=== PATIENT | male | born 1960 | race Caucasian/White ===

== ENCOUNTER 2017-03-30 09:12 | Outpatient (CLI) | payer MEDICARE, OTHER | END 2017-03-30 09:13 | disposition home or self-care (01) | LOC: SC 09:12 | PROVIDERS: ATTEND Nurse Practitioner Family | DX: G47.33 Obstructive sleep apnea (adult) (pediatric) (principal) | CPT/HCPCS: 99214; G0463; 99212 ==

== ENCOUNTER 2017-06-01 10:15 | Outpatient (CLI) | payer MEDICARE, OTHER | END 2017-06-01 10:16 | disposition home or self-care (01) | LOC: SC 10:15 | PROVIDERS: ATTEND Nurse Practitioner Family | DX: G47.33 Obstructive sleep apnea (adult) (pediatric) (principal) | CPT/HCPCS: 99213; G0463; 99212 ==

== ENCOUNTER 2018-06-27 10:48 | Outpatient (CLI) | payer MEDICARE, OTHER | END 2018-06-27 10:49 | disposition home or self-care (01) | LOC: SC 10:48 | PROVIDERS: ATTEND Nurse Practitioner Family | DX: G47.33 Obstructive sleep apnea (adult) (pediatric) (principal) | CPT/HCPCS: 99214; G0463; 99212 ==

== ENCOUNTER 2018-11-19 11:21 | Outpatient (CLI) | payer MEDICARE, OTHER | END 2018-11-19 11:22 | disposition home or self-care (01) | LOC: SC 11:21 | PROVIDERS: ATTEND Nurse Practitioner Family | DX: G47.33 Obstructive sleep apnea (adult) (pediatric) (principal) | CPT/HCPCS: 99213; G0463; 99212 ==

== ENCOUNTER 2019-01-24 09:55 | Outpatient (CLI) | payer MEDICARE, OTHER | END 2019-01-24 09:56 | disposition home or self-care (01) | LOC: SC 09:55 | PROVIDERS: ATTEND Nurse Practitioner Family | DX: G47.33 Obstructive sleep apnea (adult) (pediatric) (principal) | CPT/HCPCS: 99214; G0463; 99212 ==

== ENCOUNTER 2019-04-01 09:56 | Outpatient (CLI) | payer MEDICARE, OTHER ==
--- NOTE | 2019-04-01 11:01 | CONSULTATION NOTE ---
Information from patient questionnaire entered by Adilia Salvador. I have reviewed and concur with the information entered by Adilia Salvador. This document represents the service I personally performed and the decisions made by me, Jonathan Jennings MD, [facility]. - History of Present Illness HPI: LI ARMENDARIZ was diagnosed to have moderate, AHI 28.1, obstructive sleep apnea- hypopnea syndrome and returned today for BIPAP therapy three month follow-up. He continues to use the device every night and all night. His usage is excessive but it is unclear whether he actually sleeps that much. He is very comfortable with the treatment. He wears a full face mask. During the day he is not sleepy Equipment obtained from: [facility] - Compliance Data Reviewed with Patient Average duration of nightly device use: 11 hours Compliance rate % (4+hrs/night over past 30 nights): 100 Current pressure setting (cmH2O): 20/14 Humidity settin Heated hose settin Average residual AHI: 8.6 Central apnea: 5.1 - Subjective Initial [place] Sleepiness Scale score: 8 Current [place] Sleepiness Scale score: 3 - Review of Systems Review of systems same as previous: Yes - Impression 1. Obstructive Sleep Apnea-Hypopnea Syndrome, moderate, with good treatment compliance and fair apnea control, but has elevated residual AHI. On BIPAP therapy, there is improved sleep quality and continues to feel more rested overall. Most of the residual events are central apneas. His mask fits very well. Therefore, I will lower the pressure setting a little. - Plan Plan: Change BiPAP to 18/12 cm H2O. Return for follow-up in one year. I spent 100% of this 15 minute visit face to face with the patient with greater than 50% of this was spent time counseling the patient and coordination of care.
== END 2019-04-01 09:57 | disposition home or self-care (01) ==
LOC: SC 09:56
PROVIDERS: ATTEND Internal Medicine Pulmonary Disease
DX: G47.33 Obstructive sleep apnea (adult) (pediatric) (principal)
CPT/HCPCS: 99213; G0463; 99212

== ENCOUNTER 2021-02-05 16:38 | Outpatient (CLI) | payer MEDICARE, OTHER | END 2021-02-05 16:39 | disposition critical access hospital (66) | LOC: EMS 16:38 | DX: R44.8 Other symptoms and signs involving general sensations and perceptions (principal) | CPT/HCPCS: A0425; A0427 ==

== ENCOUNTER 2021-02-05 16:58 | Emergency (ER) | payer MEDICARE, OTHER ==
[2021-02-05 17:33] LABS: BASOPHILS % (AUTO) 0.3 %; EOSINOPHILS # (AUTO) 0.2 10^3/uL (0.0-0.7); EOSINOPHILS % (AUTO) 1.6 %; HGB - HEMOGLOBIN 15.7 g/dL (14.0-18.0); LYMPHOCYTES # (AUTO) 1.5 10^3/uL (1.5-3.5); LYMPHOCYTES % (AUTO) 12.8 %; MEAN CORPUSCULAR HEMOGLOBIN 31.5 pg (27.0-31.0); MEAN CORPUSCULAR HGB CONC 34.9 g/dL (32.0-36.0); MEAN CORPUSCULAR VOLUME 90.2 fL (80.0-94.0); MONOCYTES # (AUTO) 1.3 10^3/uL (0.0-1.0); MONOCYTES % (AUTO) 11.5 %; NEUTROPHILS # (AUTO) 8.5 10^3/uL (1.5-6.6); NEUTROPHILS % (AUTO) 73.5 %; PLT - PLATELET COUNT 348 10^3/uL (130-450); RED BLOOD COUNT 4.99 10^6/uL (4.70-6.10); RED CELL DISTRIBUTION WIDTH 11.7 % (12.0-15.0); WHITE BLOOD COUNT 11.5 x10^3/uL (4.8-10.8)
[2021-02-05 17:50] LABS: ACETAMINOPHEN < 10 ug/mL (10-30); ALBUMIN 4.1 g/dL (3.2-5.5); ALBUMIN/GLOBULIN RATIO 1.2 (1.0-2.2); ALKALINE PHOSPHATASE 131 IU/L (42-121); ALT ALANINE AMINOTRANSFERASE 91 IU/L (10-60); AST ASPARTATE AMINOTRANSFERASE 60 IU/L (10-42); BILIRUBIN,TOTAL 0.6 mg/dL (0.2-1.0); BUN - BLOOD UREA NITROGEN 12 mg/dL (6-20); CALCIUM 9.1 mg/dL (8.5-10.3); CARBON DIOXIDE - CO2 30 mmol/L (21-32); CHLORIDE 99 mmol/L (101-111); CREATININE 0.7 mg/dL (0.6-1.2); ETOH - ETHANOL < 5.0 mg/dL; GFR - MDRD 114 (>89); GLUCOSE 136 mg/dL (70-100); LIPASE 25 U/L (22-51); POTASSIUM 3.4 mmol/L (3.5-5.0); SALICYLATE < 6.0 mg/dL; SODIUM 140 mmol/L (135-145); TOTAL PROTEIN 7.6 g/dL (6.7-8.2)
--- NOTE | 2021-02-05 17:51 | ED Physician Documentation ---
PD HPI MHE - Stated complaint Stated Complaint: MHE - Chief complaint Chief Complaint: MHE - History obtained from History obtained from: Patient, EMS - Additional information Additional information: 61-year-old gentleman presents by ambulance for potential mental health evaluation. He is a rambling flight of Heist ideas and manic historian who has delusions that people are poisoning him and somebody put meat in his shoe. [facility]. Unclear if he has a psych history, Review of Systems Ten Systems: 10 systems reviewed and negative Constitutional: reports: Reviewed and negative Ears: reports: Reviewed and negative PD PAST MEDICAL HISTORY - Past Medical History Cardiovascular: Other Respiratory: None Endocrine/Autoimmune: None GI: Other : Benign prostate hypertrophy Psych: Depression Musculoskeletal: Osteoarthritis, Chronic back pain Derm: None - Past Surgical History Past Surgical History: Yes General: Hiatal hernia repair Ortho: Spine surgery Cardiovascular: Other HEENT: Tonsil/Adenoidectomy - Present Medications Home Medications: Ambulatory Orders Medication Instructions Recorded Confirmed Albuterol Sulfate [Proair Hfa 2 inh INH BID 02/05/21 02/05/21 Inhaler] Amitriptyline [Elavil] 10 mg PO DAILY 02/05/21 02/05/21 Amlodipine Besylate [Norvasc] 10 mg PO DAILY 02/05/21 02/05/21 Clotrimazole 1% Cream [Lotrimin 1% 1 applic TOP DAILY 02/05/21 02/05/21 Cream] Desonide 1 applic TOP DAILY 02/05/21 02/05/21 Finasteride [Proscar] 5 mg PO DAILY 02/05/21 02/05/21 Fluticasone/Salmeterol [Advair 1 inh INH DAILY 02/05/21 02/05/21 500-50 Diskus] Furosemide [Lasix] 20 mg PO DAILY 02/05/21 02/05/21 Gabapentin [Neurontin] 1,200 mg PO TID 02/05/21 02/05/21 Halobetasol Propionate 1 applic TOP DAILY 02/05/21 02/05/21 Lidocaine 1 patch TOP DAILY 02/05/21 02/05/21 Mupirocin 2% Oint [Bactroban 2% 1 applic TOP DAILY 02/05/21 02/05/21 Oint] Tapentadol HCl [Nucynta ER] 50 mg PO Q8HR 02/05/21 02/05/21 Tiotropium [place] [Spiriva 1 cap INH DAILY 02/05/21 02/05/21 Respimat] hydroCHLOROthiazide [Hydrodiuril] 25 mg PO DAILY 02/05/21 02/05/21 oxyCODONE [Roxicodone] 10 mg PO Q8HR 02/05/21 02/05/21 - Allergies Allergies/Adverse Reactions: Allergies Allergy/AdvReac Type Severity Reaction Status Date / Time gluten Allergy Cramps Verified 02/05/21 17:14 - Social History Does the pt smoke?: No Smoking Status: Current some day smoker Does the pt drink ETOH?: No Does the pt have substance abuse?: No - Immunizations Immunizations are current?: Yes PD ED PE NORMAL - Vitals Vital signs reviewed: Yes - General General: Alert and oriented X 3, Other (Manic and flight of ideas with delusions) - HEENT HEENT: PERRL, EOMI - Neck Neck: Supple, no meningeal sign, No bony TTP - Cardiac Cardiac: RRR, No murmur - Respiratory Respiratory: No respiratory distress, Clear bilaterally - Abdomen Abdomen: Soft, Non tender - Back Back: No CVA TTP, No spinal TTP - Derm Derm: Normal color, Other (Picked at lesions mostly on the anterior left leg) - Neuro Neuro: Alert and oriented X 3, Normal speech Results - Vitals Vitals: Vital Signs - 24 hr 02/05/21 17:03 Temperature 37.0 C Heart Rate 97 Respiratory 16 Rate Blood Pressure 144/75 H O2 Saturation 95 Oxygen O2 Source Room air - EKG (time done) 1731 Rate: Rate (enter#) (94) Rhythm: NSR [place]: Normal Intervals: Normal CT QRS: Normal Ischemia: Normal ST segments - Labs Labs: Laboratory Tests 02/05/21 02/05/21 02/05/21 17:27 17:27 17:27 WBC 11.5 H RBC 4.99 Hgb 15.7 Hct 45.0 MCV 90.2 MCH 31.5 H MCHC 34.9 RDW 11.7 L Plt Count 348 MPV 9.0 Neut # (Auto) 8.5 H Lymph # (Auto) 1.5 Ramsey # (Auto) 1.3 H Eos # (Auto) 0.2 Baso # (Auto) 0.0 Absolute Nucleated RBC 0.00 Nucleated RBC % 0.0 Sodium 140 Potassium 3.4 L Chloride 99 L Carbon Dioxide 30 Anion Gap 11.0 BUN 12 Creatinine 0.7 Estimated GFR (MDRD) 114 Glucose 136 H Calcium 9.1 Total Bilirubin 0.6 AST 60 H ALT 91 H Alkaline Phosphatase 131 H Total Protein 7.6 Albumin 4.1 Globulin 3.5 Albumin/Globulin Ratio 1.2 Lipase 25 TSH 0.84 Urine Color Urine Clarity Urine pH Ur Specific [place] Urine Protein Urine Glucose (UA) Urine Ketones Urine Occult Blood Urine Nitrite Urine Bilirubin Urine Urobilinogen Ur Leukocyte Esterase Ur Microscopic Review Urine Culture Comments Nasal Adenovirus (PCR) Nasal B. parapertussis DNA (PCR) Nasal Coronavir 229E PCR Nasal Coronavir HKU1 PCR Nasal Coronavir NL63 PCR Nasal Coronavir OC43 PCR Nasal Enterovir/Rhinovir PCR Nasal Influenza B PCR Nasal Influenza A PCR Nasal Parainfluen 1 PCR Nasal Parainfluen 2 PCR Nasal Parainfluen 3 PCR Nasal Parainfluen 4 PCR Nasal RSV (PCR) Nasal B.pertussis DNA PCR Nasal C.pneumoniae (PCR) [place]ri[place] Human Metapneumo PCR Nasal M.pneumoniae (PCR) Nasal SARS-CoV-2 (PCR) Salicylates < 6.0 Urine Opiates Screen Ur Oxycodone Screen Urine Methadone Screen Ur Propoxyphene Screen Acetaminophen < 10 L Ur Barbiturates Screen Ur Tricyclics Screen Ur Phencyclidine Scrn Ur Amphetamine Screen U Methamphetamines Scrn U Benzodiazepines Scrn Urine Cocaine Screen U Cannabinoids Screen Ethyl Alcohol < 5.0 02/05/21 02/05/21 18:00 19:16 WBC RBC Hgb Hct MCV MCH MCHC RDW Plt Count MPV Neut # (Auto) Lymph # (Auto) Ramsey # (Auto) Eos # (Auto) Baso # (Auto) Absolute Nucleated RBC Nucleated RBC % Sodium Potassium Chloride Carbon Dioxide Anion Gap BUN Creatinine Estimated GFR (MDRD) Glucose Calcium Total Bilirubin AST ALT Alkaline Phosphatase Total Protein Albumin Globulin Albumin/Globulin Ratio Lipase TSH Urine Color YELLOW Urine Clarity CLEAR Urine pH 7.5 Ur Specific [place] 1.020 Urine Protein NEGATIVE Urine Glucose (UA) NEGATIVE Urine Ketones NEGATIVE Urine Occult Blood NEGATIVE Urine Nitrite NEGATIVE Urine Bilirubin NEGATIVE Urine Urobilinogen 1 (NORMAL) Ur Leukocyte Esterase NEGATIVE Ur Microscopic Review NOT INDICATED Urine Culture Comments NOT INDICATED Nasal Adenovirus (PCR) NOT DETECTED Nasal B. parapertussis DNA (PCR) NOT DETECTED Nasal Coronavir 229E PCR NOT DETECTED Nasal Coronavir HKU1 PCR NOT DETECTED Nasal Coronavir NL63 PCR NOT DETECTED Nasal Coronavir OC43 PCR NOT DETECTED Nasal Enterovir/Rhinovir PCR NOT DETECTED Nasal Influenza B PCR NOT DETECTED Nasal Influenza A PCR NOT DETECTED Nasal Parainfluen 1 PCR NOT DETECTED Nasal Parainfluen 2 PCR NOT DETECTED Nasal Parainfluen 3 PCR NOT DETECTED Nasal Parainfluen 4 PCR NOT DETECTED Nasal RSV (PCR) NOT DETECTED Nasal B.pertussis DNA PCR NOT DETECTED Nasal C.pneumoniae (PCR) NOT DETECTED Cipriano Human Metapneumo PCR NOT DETECTED Nasal M.pneumoniae (PCR) NOT DETECTED Nasal SARS-CoV-2 (PCR) NOT DETECTED Salicylates Urine Opiates Screen NEGATIVE Ur Oxycodone Screen POSITIVE H Urine Methadone Screen NEGATIVE Ur Propoxyphene Screen NEGATIVE Acetaminophen Ur Barbiturates Screen NEGATIVE Ur Tricyclics Screen NEGATIVE Ur Phencyclidine Scrn NEGATIVE Ur Amphetamine Screen NEGATIVE U Methamphetamines Scrn NEGATIVE U Benzodiazepines Scrn NEGATIVE Urine Cocaine Screen NEGATIVE U Cannabinoids Screen NEGATIVE Ethyl Alcohol PD MEDICAL DECISION MAKING - ED course ED course: 61-year-old gentleman presents manic with delusions and psychosis. [facility], [facility] not [facility] any [facility]. Seen by telepsychiatric consultants. Recommend Zyprexa 10 mg twice a day and inpatient admission. 61-year-old gentleman presents manic, not currently treated for same. Seen by the telepsychiatrist who recommended Zyprexa twice daily but the patient did not want any medication. The patient declined efforts at psychiatric hospitalization and he is currently voluntary. Although he is manic he denies SI or HI and is certainly cooperative. Departure - Departure Disposition: 01 Home, Self Care Clinical Impression: Stacia Condition: Good Record reviewed to determine appropriate education?: Yes Instructions: ED Manic Depression Comments: Return if you decide you would like inpatient psychiatric care or worsen in any other way. Otherwise follow-up with Dr. Zaidi, next available appointment.
--- OUTSIDE RECORDS SUMMARY | 2021-02-05 18:31 | EXTERNAL MEDICAL SUMMARY RPT | Continuity of Care Document ---
:1960 Demographics Phone Unavailable Preferred Language Venezuelan Marital Status Unknown Mormon Affiliation Unknown Race Unknown Ethnic Group Unknown Author Organization [place] Address [address] [id number] Phone Care Team Providers Name Role Phone Lemme Unavailable Unavailable Allergies Encounters Medications Problems Procedures date description facility 20210110 [facility] Results Vital Signs date measurement value source 20210110 weight_standard 99.79 lb 20210110 weight_metric 45.26 kg 20210110 temperature_standard 98.2 F 20210110 temperature_metric 36.78 C 20210110 respiration_rate 18 /min 20210110 height_standard 66 in [id number] height_metric 167.64 cm 20210110 heart_rate 95 /min 20210110 BP_systolic 143 mm[Hg] [id number] BP_diastolic 77 mm[Hg] 20210110 BMI 35.5 kg/m2
[2021-02-05] MEDS ORDERED: GABAPENTIN 100 MG CAPSULE PO STA (18:41)
[2021-02-05 18:56] LABS: B. PARAPERTUSSIS- RESP PCR PAN NOT DETECTED; B. PERTUSSIS- RESP PCR PANEL NOT DETECTED; C. PNEUMONIAE- RESP PCR PANEL NOT DETECTED; CORONAVIRUS 229E-RESP PCR NOT DETECTED; CORONAVIRUS HKU1-RESP PCR NOT DETECTED; CORONAVIRUS NL63-RESP PCR NOT DETECTED; CORONAVIRUS OC43-RESP PCR NOT DETECTED; HUMAN METAPNEUMOVIRUS NOT DETECTED; INFLUENZA A- RESP PCR PANEL NOT DETECTED; INFLUENZA B - RESP PCR PANEL NOT DETECTED; M. PNEUMONIAE- RESP PCR PANEL NOT DETECTED; PARAINFLUENZA VIRUS 1 NOT DETECTED; PARAINFLUENZA VIRUS 2 NOT DETECTED; PARAINFLUENZA VIRUS 3 NOT DETECTED; PARAINFLUENZA VIRUS 4 NOT DETECTED; RHINOVIRUS/ENTEROVIRUS NOT DETECTED; RSV- RESP PCR PANEL NOT DETECTED; SARS-CoV-2 -RESP PCR PANEL NOT DETECTED
[2021-02-05 19:20] LABS: MUDS CUTOFF CONCENTRATIONS CUTOFF CONC BELOW:
[2021-02-05 19:22] LABS: BILIRUBIN,URINE NEGATIVE (NEGATIVE); GLUCOSE, URINE (UA) NEGATIVE (NEGATIVE); KETONES,URINE (UA) NEGATIVE (NEGATIVE); LEUKOCYTE ESTERASE, URINE NEGATIVE (NEGATIVE); NITRITE,URINE NEGATIVE (NEGATIVE); OCCULT BLOOD,URINE NEGATIVE (NEGATIVE); PH,URINE 7.5 PH (5.0-7.5); PROTEIN,URINE NEGATIVE (NEGATIVE); UROBILINOGEN,URINE 1 (NORMAL) E.U./dL (NORMAL)
[2021-02-05 19:24] LABS: CLARITY,URINE CLEAR (CLEAR)
[2021-02-05 19:33] LABS: AMPHETAMINE SCREEN,URINE NEGATIVE (NEGATIVE); BARBITURATE SCREEN,UR NEGATIVE (NEGATIVE); BENZODIAZEPINES SCREEN, URINE NEGATIVE (NEGATIVE); COCAINE SCREEN URINE NEGATIVE (NEGATIVE); METHADONE SCREEN, URINE NEGATIVE (NEGATIVE); METHAMPHETAMINES SCREEN, URINE NEGATIVE (NEGATIVE); OPIATE SCREEN, URINE NEGATIVE (NEGATIVE); OXYCODONE SCREEN, URINE POSITIVE (NEGATIVE); PROPOXYPHENE SCREEN, URINE NEGATIVE (NEGATIVE); THC CANNABINOID SCREEN, URINE NEGATIVE (NEGATIVE); TRICYCLIC ANTIDEPRESSANT,URINE NEGATIVE (NEGATIVE)
--- NOTE | 2021-02-05 19:34 | TELEPSYCH PHYS NOTE ---
Telepsych Note - CHIEF COMPLAINT/HX OF PRESENT ILLNESS Chief Complaint and History of Present Illness: Chief Complaint: marina HPI: The patient is a 61-year-old male brought to the ER in a manic state. The patient was hyper verbal and rambling. When seen by psychiatry, the patient stated that government agents are trying to kill him because he has evidence against him regarding a scheme to steer [employer] accounts for . Patient states that people breaking into his home, poising his food, and injecting poison into his body. - SI/HI/SELF HARM SI/HI/SELF HARM (CURRENT OR HISTORY OF):: SI SI/HI/Self Harm Text (Current or History of):: pt denies - VIOLENCE/LEGAL/COLLATERAL Violence - Legal - Collateral: Violence: none Legal: none Collateral: None available - PSYCHIATRIC HX/TREATMENT HX Psychiatric: Depression Psychiatric/Treatment Hx Other: No prior inpatient treatment. No current outpatient care. - MEDICAL HX Does the pt have a hx of MRSA?: No Cardiovascular: Other Respiratory: None Skin: None Endocrine/Autoimmune: None Gastrointestinal: Other Urinary: Benign prostate hypertrophy Musculoskeletal: Osteoarthritis, Chronic back pain Blood Disorders: None - SURGICAL HX General: Hiatal hernia repair Orthopedic: Spine surgery - HOME MEDICATIONS Home Meds (as last confirmed): Patient History Medication Instructions Recorded Confirmed Albuterol Sulfate [Proair Hfa 2 inh INH BID 02/05/21 02/05/21 Inhaler] Amitriptyline [Elavil] 10 mg PO DAILY 02/05/21 02/05/21 Amlodipine Besylate [Norvasc] 10 mg PO DAILY 02/05/21 02/05/21 Clotrimazole 1% Cream [Lotrimin 1% 1 applic TOP DAILY 02/05/21 02/05/21 Cream] Desonide 1 applic TOP DAILY 02/05/21 02/05/21 Finasteride [Proscar] 5 mg PO DAILY 02/05/21 02/05/21 Fluticasone/Salmeterol [Advair 1 inh INH DAILY 02/05/21 02/05/21 500-50 Diskus] Furosemide [Lasix] 20 mg PO DAILY 02/05/21 02/05/21 Gabapentin [Neurontin] 1,200 mg PO TID 02/05/21 02/05/21 Halobetasol Propionate 1 applic TOP DAILY 02/05/21 02/05/21 Lidocaine 1 patch TOP DAILY 02/05/21 02/05/21 Mupirocin 2% Oint [Bactroban 2% 1 applic TOP DAILY 02/05/21 02/05/21 Oint] Tapentadol HCl [Nucynta ER] 50 mg PO Q8HR 02/05/21 02/05/21 Tiotropium [place] [Spiriva 1 cap INH DAILY 02/05/21 02/05/21 Respimat] hydroCHLOROthiazide [Hydrodiuril] 25 mg PO DAILY 02/05/21 02/05/21 oxyCODONE [Roxicodone] 10 mg PO Q8HR 02/05/21 02/05/21 - ALLERGIES Allergies (as last confirmed): Allergies Allergy/AdvReac Type Severity Reaction Status Date / Time gluten Allergy Cramps Verified 02/05/21 17:14 - FAMILY PSYCH/SUICIDE/SOCIAL HX-MENTAL Family - Suicide - Social Hx and Mental Status Exam: Family Psychiatric History: none. Social History: , lives alone. Employment: [phone], Hon. discharge Education: HS grad Stressors: see HPI History: none Abuse: Patient denies. Mental Status Examination: Attitude and behavior: cooperative Speech: WNL Affect and mood: Anxious affect and mood Association and thought processes: disorganized Thought content: + bizarre, paranoid delusions, no SI, no HI Perception: no hallucinations Sensorium, memory, and orientation: AAOx3 Intellectual functioning: average Insight and judgment: impaired - PATIENT PROBLEM LIST (1) Bipolar 1 disorder Impression: The patient is 61-year-old male with a likely diagnosis of Bipolar Disorder who presents to the ER in a manic state. The patient presented with rambling, hyper verbal speech, flight of ideas, and bizarre/paranoid delusions. Patient believes that his food and body are being poisoned by government officials. Patient is not safe for discharge and appropriate for inpatient psychiatric care. - TREATMENT/PHARMACOLOGICAL RECOMMENDATION Treatment - Pharmacological - Therapy Recommendations: Start Zyprexa 10 mg PO BID and Zyprexa 10 mg IM BID PRN agitation. Refer to inpt care and contact [facility] if necessary. - TIME SPENT & PROVIDER LOCATION Telepsych consultation conducted via videoconferencing: Yes List names and roles of persons who participated in consult: Syed Lozoya M.D. [facility] Telepsych Provider Location: [place] Time Telepsych consult began: 18:45 Time Telepsych consult completed: 19:15
[2021-02-05 20:58] VITALS: BP 138/98
[2021-02-05] MEDS ORDERED: OLANZapine ODT 5 MG TABLET TL SCH (21:00)
== END 2021-02-05 20:59 | disposition home or self-care (01) ==
LOC: EDUNIT# → ED 16:58
DX: F31.2 Bipolar disorder, current episode manic severe with psychotic features (principal); Z72.0 Tobacco use; Z20.822 Contact with and (suspected) exposure to COVID-19
CPT/HCPCS: 36415; 80053; 80306; 80307; 81003; 83690; 84443; 85025; 87631; 93005; 99283; 99284; A9270; G0425; G0480; Q3014; 0202U; 80320; 80329; 81001; 87086

== ENCOUNTER 2021-05-31 17:30 | Outpatient (CLI) | payer MEDICARE, OTHER ==
--- NOTE | 2021-05-31 16:45 | SLEEP CARE CONSULTATION ---
Information from patient questionnaire entered by Camelia Lozoya. I have reviewed and concur with the information entered by Camelia Lozoya. This document represents the service I personally performed and the decisions made by me, Jonathan Jennings MD, [facility]. History of Present Illness Service Date and Time: 05/31/2021 1540 Previous diagnosis: Moderate, Obstructive Sleep Apnea-Hypopnea Syndrome AHI: 28.1 Reason for follow up: annual (Last seen 03/2019) Equipment type: BiPAP Year and Where: 2014 and 2015 [facility] Type of Sleep Study: Polysomnography HPI additional information: Mr. Fan was diagnosed to have moderate obstructive sleep apnea-hypopnea syndrome and returns today for follow up of BiPAP therapy. The patient purchased the device from [employer] and was fitted with a full face mask. He uses the device nightly and all through the night. The compliance report shows that he uses the device 180 nights out of the past 180 nights, averaging 9.4 hours a night. He complains of not getting supplies but no particular problem with the device such as soreness on the face, dry nose, epistaxis, nasal congestion or headache. He thinks that the pressure of 20/14 cmH2O is comfortable. On the BiPAP therapy he notices improvement in his sleep quality, and that he wakes up feeling fresher in the morning and more awake/alert during the day. [place] Sleepiness Scale score is 0. The average residual AHI is 4.7; and average time in large leak per day is 32 minutes a night. CPAP Compliance Data - Data Reviewed with Patient Average duration of nightly device use: 9 h 26 min Compliance rate %: 97.2 Current pressure setting (cmH2O): 20/14 Humidity settin Heated hose settin Average residual AHI: 4.7 Average large leak: 32 min 35 sec Subjective Initial [place] Sleepiness Scale score: 8 (in 2015) Allergies and Home Medications Drug allergies reviewed: Yes Home medication list reviewed: Yes Review of Systems Review of systems same as previous: Yes Physical Exam Height: 5 ft 7 in Weight: 235 lb Body Mass Index: 36.8 BMI Classification: Obese Impression and Plan IMPRESSION: 1. Obstructive Sleep Apnea-Hypopnea Syndrome, moderate, with the patient continuing to do well on BiPAP therapy. He has excellent compliance and significant clinical benefits. The current pressure appears effective and comfortable. Overall, he is very satisfied with treatment and plans to continue with it long-term. No adjustment is necessary today. Because [facility] quit their CPAP business, the patient will have to be established with another durable medical supplier. Also, the BiPAP is being recalled and is now older than the useful life of 5 years. I will order the patient a new one. PLAN: 1. Continue with BiPAP set at 20/14 cm H2O. 2. Prescription made for a new BiPAP and related supplies. 3. Return for follow up after one month of using the CPAP. Prescriptions: BiPAP, Device supplies Follow up recommended for: Weight management Visit Type: In Office Time Spent with Patient (minutes): 15 Provider Statement: I spent 100% of the Face to Face Visit with the patient with greater than 50% spent counseling the patient and coordination of care.
== END 2021-05-31 17:31 | disposition home or self-care (01) ==
LOC: SC 17:30
PROVIDERS: ATTEND Internal Medicine Pulmonary Disease
DX: G47.33 Obstructive sleep apnea (adult) (pediatric) (principal); E66.9 Obesity, unspecified; Z68.36 Body mass index [BMI] 36.0-36.9, adult
CPT/HCPCS: 99212; G0463

== ENCOUNTER 2022-06-09 16:20 | Outpatient (CLI) | payer MEDICARE, OTHER | END 2022-06-09 16:21 | disposition short-term general hospital (02) | LOC: EMS 16:20 | DX: R41.82 Altered mental status, unspecified (principal); R46.89 Other symptoms and signs involving appearance and behavior; R50.9 Fever, unspecified; M25.561 Pain in right knee; R25.2 Cramp and spasm | CPT/HCPCS: A0425; A0429; A0888 ==

== ENCOUNTER 2022-11-11 12:23 | Outpatient (CLI) | payer MEDICARE, OTHER | END 2022-11-11 12:24 | disposition critical access hospital (66) | LOC: EMS 12:23 | DX: M79.672 Pain in left foot (principal); R44.8 Other symptoms and signs involving general sensations and perceptions | CPT/HCPCS: A0425; A0429 ==

== ENCOUNTER 2022-11-11 12:41 | Emergency (ER) | payer MEDICARE, OTHER ==
[2022-11-11] MEDS ORDERED: NAPROXEN 250 MG TABLET PO STA (13:53)
[2022-11-11 13:56] LABS: MUDS CUTOFF CONCENTRATIONS CUTOFF CONC BELOW:
[2022-11-11 14:00] LABS: BILIRUBIN,URINE NEGATIVE (NEGATIVE); GLUCOSE, URINE (UA) NEGATIVE (NEGATIVE); KETONES,URINE (UA) NEGATIVE (NEGATIVE); LEUKOCYTE ESTERASE, URINE NEGATIVE (NEGATIVE); NITRITE,URINE NEGATIVE (NEGATIVE); OCCULT BLOOD,URINE NEGATIVE (NEGATIVE); PH,URINE 6.5 PH (5.0-7.5); PROTEIN,URINE NEGATIVE (NEGATIVE); UROBILINOGEN,URINE 0.2 (NORMAL) E.U./dL (NORMAL)
[2022-11-11 14:03] LABS: CLARITY,URINE CLEAR (CLEAR)
[2022-11-11 14:04] LABS: BASOPHILS # (AUTO) 0.1 10^3/uL (0.0-0.1); BASOPHILS % (AUTO) 0.6 %; EOSINOPHILS # (AUTO) 0.2 10^3/uL (0.0-0.7); EOSINOPHILS % (AUTO) 1.8 %; HCT - HEMATOCRIT 52.4 % (42.0-52.0); HGB - HEMOGLOBIN 17.7 g/dL (14.0-18.0); LYMPHOCYTES # (AUTO) 1.5 10^3/uL (1.5-3.5); LYMPHOCYTES % (AUTO) 15.4 %; MEAN CORPUSCULAR HEMOGLOBIN 29.9 pg (27.0-31.0); MEAN CORPUSCULAR HGB CONC 33.8 g/dL (32.0-36.0); MEAN CORPUSCULAR VOLUME 88.7 fL (80.0-94.0); MEAN PLATELET VOLUME 9.3 fL (7.4-11.4); MONOCYTES # (AUTO) 1.2 10^3/uL (0.0-1.0); MONOCYTES % (AUTO) 12.4 %; NEUTROPHILS # (AUTO) 6.8 10^3/uL (1.5-6.6); NEUTROPHILS % (AUTO) 69.6 %; PLT - PLATELET COUNT 403 10^3/uL (130-450); RED BLOOD COUNT 5.91 10^6/uL (4.70-6.10); RED CELL DISTRIBUTION WIDTH 11.7 % (12.0-15.0); WHITE BLOOD COUNT 9.8 x10^3/uL (4.8-10.8)
[2022-11-11 14:19] LABS: ACETAMINOPHEN < 10 ug/mL (10-30); ALBUMIN 4.5 g/dL (3.2-5.5); ALBUMIN/GLOBULIN RATIO 1.3 (1.0-2.2); ALKALINE PHOSPHATASE 94 IU/L (42-121); ALT ALANINE AMINOTRANSFERASE 41 IU/L (10-60); AST ASPARTATE AMINOTRANSFERASE 35 IU/L (10-42); BILIRUBIN,TOTAL 0.5 mg/dL (0.2-1.0); BUN - BLOOD UREA NITROGEN 13 mg/dL (6-20); CALCIUM 9.9 mg/dL (8.5-10.3); CARBON DIOXIDE - CO2 30 mmol/L (21-32); CHLORIDE 102 mmol/L (101-111); CREATININE 0.6 mg/dL (0.6-1.2); ETOH - ETHANOL < 5.0 mg/dL; GFR - MDRD 136 (>89); GLUCOSE 121 mg/dL (70-100); LIPASE 33 U/L (22-51); MAGNESIUM 2.3 mg/dL (1.7-2.8); POTASSIUM 3.6 mmol/L (3.5-5.0); SALICYLATE < 6.0 mg/dL; SODIUM 142 mmol/L (135-145); TOTAL PROTEIN 8.1 g/dL (6.7-8.2)
[2022-11-11 14:19] LABS: AMPHETAMINE SCREEN,URINE NEGATIVE (NEGATIVE); BARBITURATE SCREEN,UR NEGATIVE (NEGATIVE); BENZODIAZEPINES SCREEN, URINE NEGATIVE (NEGATIVE); COCAINE SCREEN URINE NEGATIVE (NEGATIVE); METHADONE SCREEN, URINE NEGATIVE (NEGATIVE); METHAMPHETAMINES SCREEN, URINE NEGATIVE (NEGATIVE); OPIATE SCREEN, URINE NEGATIVE (NEGATIVE); OXYCODONE SCREEN, URINE NEGATIVE (NEGATIVE); PROPOXYPHENE SCREEN, URINE NEGATIVE (NEGATIVE); THC CANNABINOID SCREEN, URINE NEGATIVE (NEGATIVE); TRICYCLIC ANTIDEPRESSANT,URINE NEGATIVE (NEGATIVE)
--- NOTE | 2022-11-11 15:16 | ED Physician Documentation ---
PD HPI LOWER EXT INJURY - Stated complaint Stated Complaint: MHE - Chief complaint Chief Complaint: Ext Problem - History obtained from History obtained from: Patient - History of Present Illness PD HPI LOW EXT INJURY LOCATION: Left Type of injury: No: Fall, Twist Timing - onset: How many days ago (she has had some redness and pain near medial great toe right foot for months, but more symptomatic the past everal days. Also has had increased amount of rash on chest and knees that he has had in past, rx with steroid cream by [facility] Consultant Álvaro Granado.) Timing - details: Gradual onset, Still present, Waxing and waning Improved by: Rest Worsened by: Moving, Palpating Associated symptoms: Swelling, Discolored (red). No: Weakness, Numbness Review of Systems Constitutional: denies: Fever, Chills Cardiac: denies: Chest pain / pressure, Palpitations, Calf pain Respiratory: denies: Dyspnea, Cough Psychiatric: reports: Insomnia. denies: Suicidal, Homicidal, Hallucinations Endocrine: denies: Weight loss PD PAST MEDICAL HISTORY - Past Medical History Cardiovascular: Other Respiratory: None Endocrine/Autoimmune: None GI: Other : Benign prostate hypertrophy Psych: Depression, Bipolar disorder Musculoskeletal: Osteoarthritis, Chronic back pain Derm: None - Past Surgical History Past Surgical History: Yes General: Hiatal hernia repair Ortho: Spine surgery Cardiovascular: Other HEENT: Tonsil/Adenoidectomy - Present Medications Home Medications: Ambulatory Orders Medication Instructions Recorded Confirmed Albuterol Sulfate [Proair Hfa 2 inh INH BID 02/05/21 02/05/21 Inhaler] Amitriptyline [Elavil] 10 mg PO DAILY 02/05/21 02/05/21 Amlodipine Besylate [Norvasc] 10 mg PO DAILY 02/05/21 02/05/21 Clotrimazole 1% Cream [Lotrimin 1% 1 applic TOP DAILY 02/05/21 02/05/21 Cream] Desonide 1 applic TOP DAILY 02/05/21 02/05/21 Finasteride [Proscar] 5 mg PO DAILY 02/05/21 02/05/21 Fluticasone/Salmeterol [Advair 1 inh INH DAILY 02/05/21 02/05/21 500-50 Diskus] Furosemide [Lasix] 20 mg PO DAILY 02/05/21 02/05/21 Gabapentin [Neurontin] 1,200 mg PO TID 02/05/21 02/05/21 Halobetasol Propionate 1 applic TOP DAILY 02/05/21 02/05/21 Lidocaine 1 patch TOP DAILY 02/05/21 02/05/21 Mupirocin 2% Oint [Bactroban 2% 1 applic TOP DAILY 02/05/21 02/05/21 Oint] Tapentadol HCl [Nucynta ER] 50 mg PO Q8HR 02/05/21 02/05/21 Tiotropium [place] [Spiriva 1 cap INH DAILY 02/05/21 02/05/21 Respimat] hydroCHLOROthiazide [Hydrodiuril] 25 mg PO DAILY 02/05/21 02/05/21 oxyCODONE [Roxicodone] 10 mg PO Q8HR 02/05/21 02/05/21 Desonide [Desowen] 1 applic TP BID #60 gm 11/11/22 Meloxicam [Mobic] 7.5 mg PO BID 10 Days #20 tablet 11/11/22 Terbinafine HCl [Lamisil At] 1 applic TP BID 7 Days #30 gm 11/11/22 - Allergies Allergies/Adverse Reactions: Allergies Allergy/AdvReac Type Severity Reaction Status Date / Time gluten Allergy Cramps Verified 02/05/21 17:14 - Social History Does the pt smoke?: No Smoking Status: Current some day smoker Does the pt drink ETOH?: No Does the pt have substance abuse?: No - Immunizations Immunizations are current?: Yes PD ED PE NORMAL - Vitals Vital signs reviewed: Yes - General General: Alert and oriented X 3, Well developed/nourished - Cardiac Cardiac: RRR, No murmur - Respiratory Respiratory: Clear bilaterally - Abdomen Abdomen: Soft, Non tender - Back Back: No spinal TTP - Derm Derm: Normal color, Warm and dry, Other (there are rounded discrete hyperkeratotic lesions clustered on abd and large ones on knees. Demarcateed edges of them. No purulence. c/s discoid eczema/psoriasis. ) - Extremities Extremities: Other (medial left foot with redness and tenderness medial MTP of great toe. No skin lesions. ) Results - Vitals Vitals: Vital Signs - 24 hr 11/11/22 11/11/22 12:53 15:23 Temperature 36.8 C 36.4 C L Heart Rate 89 77 Respiratory 18 18 Rate Blood Pressure 101/65 150/83 H O2 Saturation 99 98 Oxygen O2 Source Room air - Labs Labs: Laboratory Tests 11/11/22 11/11/22 11/11/22 13:25 13:58 13:58 WBC 9.8 RBC 5.91 Hgb 17.7 Hct 52.4 H MCV 88.7 MCH 29.9 MCHC 33.8 RDW 11.7 L Plt Count 403 MPV 9.3 Neut # (Auto) 6.8 H Lymph # (Auto) 1.5 [place] # (Auto) 1.2 H Eos # (Auto) 0.2 Baso # (Auto) 0.1 Absolute Nucleated RBC 0.00 Nucleated RBC % 0.0 Sodium 142 Potassium 3.6 Chloride 102 Carbon Dioxide 30 Anion Gap 10.0 BUN 13 Creatinine 0.6 Estimated GFR (MDRD) 136 Glucose 121 H Calcium 9.9 Magnesium 2.3 Total Bilirubin 0.5 AST 35 ALT 41 Alkaline Phosphatase 94 Total Protein 8.1 Albumin 4.5 Globulin 3.6 Albumin/Globulin Ratio 1.3 Lipase 33 TSH Urine Color YELLOW Urine Clarity CLEAR Urine pH 6.5 Ur Specific Johnson 1.010 Urine Protein NEGATIVE Urine Glucose (UA) NEGATIVE Urine Ketones NEGATIVE Urine Occult Blood NEGATIVE Urine Nitrite NEGATIVE Urine Bilirubin NEGATIVE Urine Urobilinogen 0.2 (NORMAL) Ur Leukocyte Esterase NEGATIVE Ur Microscopic Review NOT INDICATED Urine Culture Comments NOT INDICATED Salicylates < 6.0 Urine Opiates Screen NEGATIVE Ur Oxycodone Screen NEGATIVE Urine Methadone Screen NEGATIVE Ur Propoxyphene Screen NEGATIVE Acetaminophen < 10 L Ur Barbiturates Screen NEGATIVE Ur Tricyclics Screen NEGATIVE Ur Phencyclidine Scrn NEGATIVE Ur Amphetamine Screen NEGATIVE U Methamphetamines Scrn NEGATIVE U Benzodiazepines Scrn NEGATIVE Urine Cocaine Screen NEGATIVE U Cannabinoids Screen NEGATIVE Ethyl Alcohol < 5.0 11/11/22 13:58 WBC RBC Hgb Hct MCV MCH MCHC RDW Plt Count MPV Neut # (Auto) Lymph # (Auto) [place] # (Auto) Eos # (Auto) Baso # (Auto) Absolute Nucleated RBC Nucleated RBC % Sodium Potassium Chloride Carbon Dioxide Anion Gap BUN Creatinine Estimated GFR (MDRD) Glucose Calcium Magnesium Total Bilirubin AST ALT Alkaline Phosphatase Total Protein Albumin Globulin Albumin/Globulin Ratio Lipase TSH 0.43 Urine Color Urine Clarity Urine pH Ur Specific Johnson Urine Protein Urine Glucose (UA) Urine Ketones Urine Occult Blood Urine Nitrite Urine Bilirubin Urine Urobilinogen Ur Leukocyte Esterase Ur Microscopic Review Urine Culture Comments Salicylates Urine Opiates Screen Ur Oxycodone Screen Urine Methadone Screen Ur Propoxyphene Screen Acetaminophen Ur Barbiturates Screen Ur Tricyclics Screen Ur Phencyclidine Scrn Ur Amphetamine Screen U Methamphetamines Scrn U Benzodiazepines Scrn Urine Cocaine Screen U Cannabinoids Screen Ethyl Alcohol PD Medical Decision Making - ED course Complexity details: considered differential (the foot does not have skin sores nor lymphatic redness to suggest infection. Location and character of the tenderness seems most c/w gout. ), d/w patient Reviewed Lab Results: sodium in reviewed and normal. Chemistry panel is reivewed and normal. UTox is reviewed and normal. His hypomanic presentation seems psychiatric. Social Determinants of Health: Prior ER visit several years ago for manic behavior but got discharged, and not felt detainable. He denies any current psychiatric meds. He repeats often that "I don't know why everyone wants to talk aobut Mental". Procedural Risk Factors Specific to Patient: he was feeling able to go home. He feels he can take care of himself. He is not expressing any suicidal nor homocidal ideation. He is able to tell me that he is calling for ride. Does not seem detainable at this time. ED course: he arrived by ambulance with concern about parasites under skin in leg due to pain and feeling of sharp twinges at the site. He has continual speech, tangential thought pattern, and somewhat pressured/energetic speech. He denies suicidal dieation nor homocidal ideation. He does not feel that his thought processing is a problem. Eval of foot seems likely c/w gout.He has rash areas on knees and abdomen that is c/w nummular eczema/psoriasis. Departure - Departure Disposition: 01 Home, Self Care Clinical Impression: Paresthesia of left foot, Nummular eczematous dermatitis, Hypomania Condition: Stable Record reviewed to determine appropriate education?: Yes Instructions: ED Dermatitis Atopic Eczema Follow-Up: Brayden Zaidi DO [Provider Admit Priv/Credential] - ÁLVARO GRANADO PA-C [Physician No Access] - Prescriptions: Desonide [Desowen] 1 applic TP BID #60 gm Terbinafine HCl [Lamisil At] 1 applic TP BID 7 Days #30 gm Meloxicam [Mobic] 7.5 mg PO BID 10 Days #20 tablet Comments: Your great toe and foot area I believe has an inflammation of either tendinitis or perhaps an joint inflammation called gout. This would account for some of the redness, swelling, pinprick type feelings and tenderness. Bedside ultrasound here did not show any obvious foreign bodies or insects under the skin. I would treat this with meloxicam anti-inflammatory twice daily with food for the next 7 to 10 days. I think that we will get a better. Regarding your patches of dry and inflamed skin, we can use a combination of the desonide steroid cream as well as terbinafine antifungal cream twice daily for the next 7 to 10 days. This should quiet it down. Follow-up with dermatology as needed for the skin rashes. Follow-up with your primary care if the foot and toe are not improved. Return to the ER if not improved over the next several days or other symptoms are bothersome. I sent your prescriptions to your preferred pharmacy. Discharge Date/Time: 11/11/22 15:24
[2022-11-11 15:24] VITALS: BP 150/83
== END 2022-11-11 15:24 | disposition home or self-care (01) ==
LOC: EDUNIT# → ED 12:41
DX: R20.2 Paresthesia of skin (principal); L30.0 Nummular dermatitis; F30.8 Other manic episodes; F17.200 Nicotine dependence, unspecified, uncomplicated
CPT/HCPCS: 36415; 80053; 80306; 80307; 81003; 83690; 83735; 84443; 85025; 99283; 99284; A9270; G0480; 80320; 80329; 81001; 87086

== ENCOUNTER 2023-02-16 15:03 | Outpatient (CLI) | payer MEDICARE, OTHER ==
--- NOTE | 2023-02-17 11:11 | Ultrasound Report ---
PROCEDURE: Duplex Lwr Ext Arterial Bilat INDICATIONS: PVD TECHNIQUE: Color and pulse Doppler interrogation was performed of both lower extremity arterial systems, with im age documentation. COMPARISON: None FINDINGS: Right lower extremity: Common femoral artery: 114.2 cm/sec, with triphasic flow. Deep femoral artery: 85.7 cm/sec, with biphasic flow. Proximal superficial femoral artery: 136.2 cm/sec, with triphasic flow. Mid superficial femoral artery: 128.0 cm/sec, with triphasic flow. Distal superficial femoral artery: 110.8 cm/sec, with triphasic flow. Popliteal artery: 92.0 cm/sec, with triphasic flow. Posterior tibial artery: 113.7 cm/sec, with triphasic flow. Anterior tibial artery/dorsalis pedis: 143.9 cm/sec, with triphasic flow. Vazquez-scale imaging description: Mild plaque. No significant stenosis. Left lower extremity: Common femoral artery: 129.1 cm/sec, with triphasic flow. Deep femoral artery: 55.2 cm/sec, with triphasic flow. Proximal superficial femoral artery: 130.0 cm/sec, with triphasic flow. Mid superficial femoral artery: 124.7 cm/sec, with triphasic flow. Distal superficial femoral artery: 121.4 cm/sec, with triphasic flow. Popliteal artery: 132.1 cm/sec, with triphasic flow. Posterior tibial artery: 87.6 cm/sec, with triphasic flow. Anterior tibial artery/dorsalis pedis: 65.8 cm/sec, with triphasic flow. Vazquez-scale imaging description: Mild plaque. No significant stenosis. IMPRESSION: 1. No evidence of inflow stenosis. 2. Mild plaque with no significant stenosis bilaterally. 3. All waveforms are normal. Reviewed by: Edmundo Marquez MD on 02/17/2023 11:09 AM PDT Approved by: Edmundo Marquez MD on 02/17/2023 11:09 AM PDT Station ID: [id number]
== END 2023-02-16 15:04 | disposition home or self-care (01) ==
LOC: DI 15:03
PROVIDERS: ATTEND Family Medicine
DX: I73.9 Peripheral vascular disease, unspecified (principal)
CPT/HCPCS: 93925

== ENCOUNTER 2023-07-21 14:50 | Emergency (ER) | payer MEDICARE, OTHER ==
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
[2023-07-21 16:15] VITALS: BP 120/80; O2SAT 98
== END 2023-07-21 16:07 | disposition home or self-care (01) ==
LOC: ED 14:50
DX: R60.0 Localized edema (principal); Z79.899 Other long term (current) drug therapy
CPT/HCPCS: 99282; 99283

== ENCOUNTER 2023-07-23 20:03 | Outpatient (CLI) | payer MEDICARE, OTHER | END 2023-07-23 20:04 | disposition short-term general hospital (02) | LOC: EMS 20:03 | DX: R60.0 Localized edema (principal); R23.8 Other skin changes; M79.662 Pain in left lower leg; M79.661 Pain in right lower leg; M25.572 Pain in left ankle and joints of left foot; M25.571 Pain in right ankle and joints of right foot; M79.672 Pain in left foot; M79.671 Pain in right foot; R46.89 Other symptoms and signs involving appearance and behavior | CPT/HCPCS: A0425; A0429 ==

== ENCOUNTER 2024-01-05 17:05 | Outpatient (CLI) | payer MEDICARE, OTHER | END 2024-01-05 23:59 | disposition critical access hospital (66) | LOC: EMS 17:05 | DX: M79.89 Other specified soft tissue disorders (principal); M25.561 Pain in right knee | CPT/HCPCS: A0425; A0429 ==

== ENCOUNTER 2024-01-05 17:24 | Emergency (ER) | payer MEDICARE, OTHER ==
[2024-01-05] MEDS: MELOXICAM 7.5 MG TABLET PO STA (18:17)
--- NOTE | 2024-01-05 19:08 | ED Physician Documentation ---
History of Present Illness - Stated complaint Stated Complaint: BILAT LEG SWELLING - Chief complaint Chief Complaint: Ext Problem - History obtained from History obtained from: Patient - History of Present Illness Timing: Chronic Pain level max: 5 Pain level now: 5 - Additonal information Additional information: Patient is a 63-year-old male who presents to the emergency department with several complaints. The main complaint he states is that his right knee has been hurting for the past 4 years. He states that he has had x-rays and an ultrasound of his knee 4 years ago. He states that those results are "in the system". He denies any new injuries. He states that occasionally his left knee hurts as well but is not hurting currently. No falls. No trauma. No redness. No swelling. The second complaint is that he states that he has been diagnosed with a "toxin" in his body from [facility] and states that they have the lab workup there to tell what type of chemical/toxin it is. He states that they told him it would be difficult to get rid of. He does not know any further information about this. He states that testing was several years ago. He also states that he has a chronic rash that he has had for the past 4 to 5 years, is usually prescribed a cream of some sort by his dermatology provider. He states that he has the cream but has not been using it. He states that the rash is no different than usual. No fevers. No chills. No cough. No congestion. No drainage. Review of Systems Constitutional: denies: Fever, Chills Nose: denies: Rhinorrhea / runny nose, Congestion Respiratory: denies: Cough GI: denies: Abdominal Pain, Nausea, Vomiting, Diarrhea, Hematemesis : denies: Dysuria Musculoskeletal: denies: Neck pain, Back pain Neurologic: denies: Headache PD PAST MEDICAL HISTORY - Past Medical History Cardiovascular: Other Respiratory: None Endocrine/Autoimmune: None GI: Other : Benign prostate hypertrophy Psych: Depression, Bipolar disorder Musculoskeletal: Osteoarthritis, Chronic back pain Derm: None - Past Surgical History Past Surgical History: Yes General: Hiatal hernia repair Ortho: Spine surgery Cardiovascular: Other HEENT: Tonsil/Adenoidectomy - Present Medications Home Medications: Ambulatory Orders Medication Instructions Recorded Confirmed Albuterol Sulfate [Proair Hfa 2 inh INH BID 02/05/21 02/05/21 Inhaler] Amitriptyline [Elavil] 10 mg PO DAILY 02/05/21 02/05/21 Amlodipine Besylate [Norvasc] 10 mg PO DAILY 02/05/21 02/05/21 Clotrimazole 1% Cream [Lotrimin 1% 1 applic TOP DAILY 02/05/21 02/05/21 Cream] Desonide 1 applic TOP DAILY 02/05/21 02/05/21 Finasteride [Proscar] 5 mg PO DAILY 02/05/21 02/05/21 Fluticasone/Salmeterol [Advair 1 inh INH DAILY 02/05/21 02/05/21 500-50 Diskus] Furosemide [Lasix] 20 mg PO DAILY 02/05/21 02/05/21 Gabapentin [Neurontin] 1,200 mg PO TID 02/05/21 02/05/21 Halobetasol Propionate 1 applic TOP DAILY 02/05/21 02/05/21 Lidocaine 1 patch TOP DAILY 02/05/21 02/05/21 Mupirocin 2% Oint [Bactroban 2% 1 applic TOP DAILY 02/05/21 02/05/21 Oint] Tapentadol HCl [Nucynta ER] 50 mg PO Q8HR 02/05/21 02/05/21 Tiotropium [place] [Spiriva 1 cap INH DAILY 02/05/21 02/05/21 Respimat] hydroCHLOROthiazide [Hydrodiuril] 25 mg PO DAILY 02/05/21 02/05/21 oxyCODONE [Roxicodone] 10 mg PO Q8HR 02/05/21 02/05/21 Desonide [Desowen] 1 applic TP BID #60 gm 11/11/22 Meloxicam [Mobic] 7.5 mg PO BID 10 Days #20 tablet 11/11/22 Terbinafine HCl [Lamisil At] 1 applic TP BID 7 Days #30 gm 11/11/22 Lanolin Alcohol/Mo/W.pet/[place] 1 applic TP TID #454 gm 07/21/23 [Eucerin Cream] cephALEXin [Keflex] 500 mg PO Q6H #20 cap 07/21/23 - Allergies Allergies/Adverse Reactions: Allergies Allergy/AdvReac Type Severity Reaction Status Date / Time gluten Allergy Cramps Verified 01/05/24 17:41 - Social History Does the pt smoke?: No Smoking Status: Never smoker Does the pt drink ETOH?: No Does the pt have substance abuse?: No - Immunizations Immunizations are current?: Yes PD ED PE NORMAL - Vitals Vital signs reviewed: Yes - General General: Alert and oriented X 3, No acute distress - HEENT HEENT: Moist mucous membranes - Neck Neck: Supple, no meningeal sign - Cardiac Cardiac: RRR, Strong equal pulses - Respiratory Respiratory: No respiratory distress, Clear bilaterally - Abdomen Abdomen: Soft, Non tender, Non distended - Back Back: No spinal TTP - Derm Derm: Warm and dry - Extremities Extremities: Other (Left knee is normal. Right knee is normal as well. No joint effusions. ACL, MCL, PCL, LCL are intact. No bony tenderness. No deformity. Mild trace edema bilateral lower extremities. Neurovascular intact.) - Neuro Neuro: Alert and oriented X 3 - Psych Psych: Normal mood, Normal affect Results - Vitals Vitals: Vital Signs - 24 hr 01/05/24 01/05/24 17:41 19:17 Temperature 36.1 C L 37.0 C Heart Rate 91 81 Respiratory 20 16 Rate Blood Pressure 164/91 H 127/83 H O2 Saturation 97 98 Oxygen O2 Source Room air - Rads (name of study) Right knee x-ray Relevant Findings:: Final report received, See rad report PD Medical Decision Making - ED course Complexity details: reviewed results, re-evaluated patient, considered differential, d/w patient ED course: 63-year-old male complaining of right knee pain for the past 4 years. No acute findings on x-ray. Ambulating without difficulty. The other 2 complaints he states are chronic and he is being evaluated by his specialist for them, hipolito mmend that he follow-up with his specialist for further care of these chronic issues. Patient counseled regarding signs and symptoms for which I believe and urgent re-evaluation would be necessary. Patient with good understanding of and agreement to plan and is comfortable going home at this time This document was made in part using voice recognition software. While efforts are made to proofread this document, sound alike and grammatical errors may occur. Departure - Departure Disposition: 01 Home, Self Care Clinical Impression: Chronic knee pain Qualifiers: Laterality: right Qualified Code(s): M25.561 - Pain in right knee Condition: Good Instructions: ED Knee Pain [facility] Follow-Up: Brayden Zaidi DO [Provider Admit Priv/Credential] - Brayden Zaidi DO [Provider Admit Priv/Credential] - Comments: As you have stated you have multiple specialist that are treating you. I would recommend you follow-up with Dr. Zaidi early next week as he has access to your records from the various specialist in various hospitals. You can also contact Álvaro Hager directly regarding your rash. I do not have access to [facility]'s records here, but as we discussed Dr. Zaidi will have access to these and can help you with your chronic medical conditions. Forms: PCP List Discharge Date/Time: 01/05/24 19:17
--- NOTE | 2024-01-05 19:19 | XRAY Report ---
PROCEDURE: Knee 4+V RT INDICATIONS: R knee pain TECHNIQUE: 4 views of the knee were acquired. COMPARISON: None. FINDINGS: Bones: No acute fractures or dislocations. No suspicious bony lesions. Soft tissues: No knee joint effusion. No suspicious soft tissue calcifications or masses. IMPRESSION: No acute osseous abnormality. If there is clinical concern or persistent symptoms, additional imaging such as repeat radiographs or advanced imaging (e.g. CT, MRI) may be helpful for further evaluation. Reviewed by: Jefferson Lowry MD on 01/05/2024 7:17 PM PDT Approved by: Jefferson Lowry MD on 01/05/2024 7:17 PM PDT Station ID: [id number]
[2024-01-05 19:25] VITALS: BP 127/83; O2SAT 98
== END 2024-01-05 19:17 | disposition home or self-care (01) ==
LOC: EDUNIT# → ED 17:24
DX: M25.561 Pain in right knee (principal); Z79.899 Other long term (current) drug therapy; Z79.51 Long term (current) use of inhaled steroids
CPT/HCPCS: 73564; 99283; A9270